=== PATIENT | female | born 1935 | race American Indian/Alaskan Native ===

== ENCOUNTER 2021-11-05 09:28 | Emergency (ER) | payer MEDICARE ==
[2021-11-05] MEDS ORDERED: SODIUM CHLORIDE 0.9% 500 ML 500 ML IV ONE (11:41)
[2021-11-05 14:19] LABS: Hematocrit 41.2 % (30.3-42.9); Hemoglobin 13.4 gm/dl (10.1-14.3); Mean Corpuscular HGB Conc 33 % (30-34); Mean Corpuscular Volume 88 fl (79-97); Platelet Count 254 K/mm3 (140-440); Red Blood Count 4.68 M/mm3 (3.65-5.03); Red Cell Distribution Width 16.2 % (13.2-15.2)
[2021-11-05 14:20] LABS: Basophils % (Auto) 0.3 % (0.0-1.8); Lymphocytes # (Auto) 1.2 K/mm3 (1.2-5.4); Lymphocytes % (Auto) 13.8 % (13.4-35.0); Monocytes # (Auto) 0.4 K/mm3 (0.0-0.8); Monocytes % (Auto) 4.4 % (0.0-7.3)
[2021-11-05 14:32] LABS: Alanine Aminotransferase 12 units/L (7-56); Albumin 4.1 g/dL (3.9-5); BUN/Creatinine Ratio 24; Blood Urea Nitrogen 22 mg/dL (7-17); Calcium 9.3 mg/dL (8.4-10.2); Hemolysis Index 7
[2021-11-05 16:44] LABS: Bilirubin,Urine NEG (Negative); Blood,Urine NEG (Negative); Color,Urine Straw (Yellow); Urobilinogen,Urine < 2.0 mg/dL (<2.0)
[2021-11-05 16:47] LABS: WBC,Urine > 1.0 /HPF (0.0-6.0)
--- NOTE | 2021-11-05 18:49 | Emergency Department Report ---
ED General Adult HPI - General Chief complaint: Altered Mental Status Stated complaint: AMS Time Seen by Provider: 11/05/21 11:40 Source: patient, EMS Mode of arrival: Stretcher Limitations: Altered Mental Status - History of Present Illness Initial comments: ALTERED MENTAL STATUS. [place] STATES PT HAS DEMENTIA BUT SEEMS WORSE TODAY -: Gradual, hour(s) Severity scale (0 -10): 0 Consistency: constant Improves with: none Worsens with: none - Related Data Allergies Allergy/AdvReac Type Severity Reaction Status Date / Time No Known Allergies Allergy Unverified 11/05/21 09:48 ED Review of Systems ROS: Stated complaint: AMS Other details as noted in HPI Comment: Unobtainable due to pts medical conditions ED Past Medical Hx - Past Medical History Previous Medical History?: No Hx Hypertension: No Hx Dementia: Yes ED Physical Exam - General Limitations: Other (dementia) General appearance: alert, in no apparent distress - Head Head exam: Present: atraumatic, normocephalic - Eye Eye exam: Present: normal appearance - ENT ENT exam: Present: mucous membranes moist - Neck Neck exam: Present: normal inspection - Respiratory Respiratory exam: Present: normal lung sounds bilaterally. Absent: respiratory distress - Cardiovascular Cardiovascular Exam: Present: regular rate, normal rhythm. Absent: systolic murmur, diastolic murmur, rubs, gallop - GI/Abdominal GI/Abdominal exam: Present: soft, normal bowel sounds - Extremities Exam Extremities exam: Present: normal inspection - Back Exam Back exam: Present: normal inspection - Neurological Exam Neurological exam: Present: alert, oriented X3 - Psychiatric Psychiatric exam: Present: normal affect, normal mood - Skin Skin exam: Present: warm, dry, intact, normal color. Absent: rash ED Course Vital Signs 11/05/21 11/05/21 11/05/21 09:28 10:49 14:45 Temperature 97.6 F Pulse Rate 60 75 Respiratory 16 23 Rate Blood Pressure 196/92 Blood Pressure 135/70 [Left] O2 Sat by Pulse 98 96 97 Oximetry 11/05/21 11/05/21 11/05/21 15:15 15:31 15:45 Temperature Pulse Rate 79 72 67 Respiratory 25 H 22 20 Rate Blood Pressure 245/103 222/81 222/81 Blood Pressure [Left] O2 Sat by Pulse 98 97 97 Oximetry 11/05/21 11/05/21 11/05/21 16:01 16:15 16:31 Temperature Pulse Rate 78 69 74 Respiratory 25 H 21 23 Rate Blood Pressure 204/78 204/78 157/94 Blood Pressure [Left] O2 Sat by Pulse 94 96 94 Oximetry 11/05/21 11/05/21 16:45 17:01 Temperature Pulse Rate 76 73 Respiratory 25 H 22 Rate Blood Pressure 157/94 144/96 Blood Pressure [Left] O2 Sat by Pulse 96 97 Oximetry ED Medical Decision Making - Lab Data Result diagrams: 11/05/21 13:25 11/05/21 13:25 - Medical Decision Making work up unremarkable vss , no distress, basline dementia Critical care attestation.: If time is entered above; I have spent that time in minutes in the direct care of this critically ill patient, excluding procedure time. ED Disposition Clinical Impression: Dementia Disposition: [facility] Is pt being admited?: No Does the pt Need Aspirin: No Condition: Stable Instructions: Dementia Referrals: PRIMARY CARE, [Primary Care Provider] - 3-5 Days
[2021-11-05 20:07] VITALS: BP 200/71
== END 2021-11-05 23:40 ==
LOC: ED 09:28
DX: F03.90 Unspecified dementia, unspecified severity, without behavioral disturbance, psychotic disturbance, mood disturbance, and anxiety (principal)
CPT/HCPCS: 36415; 80053; 81001; 82140; 82550; 84484; 85025; 99284; J7040